=== PATIENT | female | born 1935 | race Caucasian/White ===

== ENCOUNTER 2020-05-22 07:18 | Day surgery (SDC) | payer MEDICARE, BC ==
[2020-05-21 09:57] VITALS: BMI 34.5
[~2020-05-22 07:18] MED LIST: LACTATED RINGERS 1,000 ML IV SCH
[2020-05-22 08:01] VITALS: RESP 16; TEMP 98.2
[2020-05-22] MEDS ORDERED: LIDOCAINE 1% (10MG/ML) FOR IV START INTRADERMA ONE (08:10)
[2020-05-22] MEDS ORDERED: ONDANSETRON 4 MG/2 ML VIAL ONE (08:35)
[2020-05-22] MEDS ORDERED: PROPOFOL 10 MG/ML 20 ML VIAL IV ONE (08:35)
[2020-05-22] MEDS ORDERED: LIDOCAINE 1% INJ 10MG/ML (20 ML MDV) ONE (08:35)
--- NOTE | 2020-05-22 09:05 | P.PCN ---
Date of Procedure: 05/22/20 Procedure(s) Performed: Brief history: Patient is a pleasant 85-year-old white female scheduled for an elective upper endoscopy as well as colonoscopy as a part of evaluation of dysphagia solids. She has prior history of esophageal hernia repair. Also has history of rectal cancer diagnosed 12 years ago and underwent surgical resection. s she ischeduled for a surveillance colonoscopy today. Her last colonoscopy was 5 years ago Procedure performed: Esophagogastroduodenoscopy with balloon dilation Colonoscopy Preoperative diagnosis: Intermittent dysphagia to solids History of rectal cancer diagnosed 12 years Anesthesia: MAC Procedure: After informed consent was obtained from the patient was brought into the endoscopy unit and IV sedation was administered by anesthesia under continuous monitoring. Initially upper endoscopy was done. The Olympus GF 160 video endoscope was inserted inserted into the mouth and esophagus intubated without any difficulty and was gradually advanced into the stomach and duodenum and carefully examined. The bulb and second part of the duodenum appeared normal. The scope was then withdrawn into the stomach adequately insufflated with air and upon careful examination the antrum and body, cardia and fundus appeared normal.. There is evidence of prior Chandni fundoplication noted. The scope was then withdrawn into the esophagus. There was a widely patent distal esophageal Schatzki's ring that was dilated using 18-20 mm balloon in a sequent ial fashion for 30 seconds. The GE junction was located at 40 cm to the incisors. It appeared regular with no erythema erosions or ulcerations. Rest of the esophagus appeared normal. Patient tolerated the procedure well. At this time the patient continued to remain sedation. Initial digital rectal examination was normal. Olympus CF 160 video colonoscope was then inserted into the rectum and gradually advanced to the cecum without any difficulty. Careful examination was performed as the scope was gradually being withdrawn. The prep was excellent. The cecum, ascending colon, transverse colon, descending colon, sigmoid colon and rectum appeared normal. Diffuse diverticulosis noted. Retroflexion was performed in the rectum and no lesions were noted. Patient tolerated the procedure well. Impression: 1. Upper endoscopy revealed distal esophageal whitish patent Schatzki's ring status post balloon dilation using 18-20 mm TTS balloon as described above 2. Colonoscopy revealed diffuse diverticulosis throughout the entire colon but no evidence of colorectal neoplasia Recommendations: Findings of this examination were discussed with the patient as well as[ her family. She was advised to be on a clear liquid diet today.. She will continue current medications and follow antireflux measures.
[2020-05-22 09:29] VITALS: BP 177/85; PULSE 63
== END 2020-05-22 09:44 | disposition home or self-care (01) ==
LOC: ORWHC2ENDO 07:18
PROVIDERS: ATTEND Internal Medicine Gastroenterology
DX: Z12.11 Encounter for screening for malignant neoplasm of colon (principal); K57.30 Diverticulosis of large intestine without perforation or abscess without bleeding; Z85.048 Personal history of other malignant neoplasm of rectum, rectosigmoid junction, and anus; K22.2 Esophageal obstruction; K21.9 Gastro-esophageal reflux disease without esophagitis; I10 Essential (primary) hypertension; F32.9 Major depressive disorder, single episode, unspecified; Z88.0 Allergy status to penicillin; Z88.6 Allergy status to analgesic agent; Z79.899 Other long term (current) drug therapy; Z86.11 Personal history of tuberculosis
CPT/HCPCS: 43249; J2405; J2001; J2704; C1726; G0105; 45378